=== PATIENT | female | born 1950 ===

== ENCOUNTER → 2019-03-22 | Outpatient (CLI) | payer MEDICARE, BC ==
--- NOTE | 2019-03-24 10:42 | CR ---
INDICATION: Cervicalgia, fall. CERVICAL SPINE: Three views of the cervical spine were obtained and revealed reversal of the normal cervical lordosis, which is centered on the C5 vertebral body. Hypertrophic degenerative changes and sclerosis are noted at C5-6, C6-7 with anterior and to a lesser extent posterior hypertrophic changes at those levels. Vertebral body heights were well-maintained with no evidence of a definite acute fracture or dislocation identified. Hypertrophic changes are noted at the lateral masses, most severe in the mid to lower levels. Degenerative changes of mild degree to moderate degree are noted in the atlantoodontoid joint area with narrowing of that joint. Prevertebral space appeared to be normal. Slightly decreased bone density may be present, raising question of osteoporosis - correlate clinically. IMPRESSION: Degenerative changes, reversal of normal cervical lordosis, disk disease, possible osteoporosis. Nothing acute identified. Report faxed to Annel Mcfadden DC on 03/24/[address] [facility]
== END ==
LOC: FB.CLBR 17:32
PROVIDERS: ATTEND Nurse Practitioner Family
DX: M54.2 Cervicalgia (principal); M47.812 Spondylosis without myelopathy or radiculopathy, cervical region; M40.50 Lordosis, unspecified, site unspecified; M50.322 Other cervical disc degeneration at C5-C6 level; W19.XXXA Unspecified fall, initial encounter
CPT/HCPCS: 72040; 99202